=== PATIENT | female | born 1975 | race African-American/Black ===

== ENCOUNTER 2017-04-17 00:50 | Emergency (ER) | payer OTHER ==
[2017-04-17] MEDS ORDERED: IBUPROFEN 600 MG TABLET (FP) PO ONE ×2 (00:54→00:59)
--- NOTE | 2017-04-17 00:54 | PDOC ---
History of Present Illness - General History Source: Patient Exam Limitations: No Limitations - History of Present Illness Initial Comments: 04/17/17 01:18 The patient is a 41 year old female, with significant past medical history of HLD, who presents today complaining of palpitations starting this evening after taking Coricidin for a cough and runny nose. She states she took the medication before she was going to sleep, and the palpitations woke her up from her sleep. She states notes that she did not take any of her blood pressure medications ( metoprolol, amlodipine, lisinopril) this morning because she did not know how it would react with the cough medications. Denies chest pain, SOB. Denies abdominal pain. Denies back pain. Denies chills, nausea, vomiting. Allergies: none reported PCP- Dr. Ko Ojeda <Katya Reyez - Last Filed: 04/17/17 01:17> <Cathy Rose - Last Filed: 04/17/17 05:44> - General Stated Complaint: HEART PALPITATIONS Time Seen by Provider: 04/17/17 00:53 Past History <Katya Reyez - Last Filed: 04/17/17 01:17> - Psycho/Social/Smoking Cessation Hx Suicidal Ideation: No Smoking History: Never smoked Have you smoked in the past 12 months: No Information on smoking cessation initiated: No Hx Alcohol Use: No Drug/Substance Use Hx: No <Cathy Rose - Last Filed: 04/17/17 05:44> - Past Medical History Allergies/Adverse Reactions: Allergies Allergy/AdvReac Type Severity Reaction Status Date / Time No Known Allergies Allergy Verified 04/17/17 00:53 Home Medications: Ambulatory Orders Amlodipine Besylate [Norvasc -] 10 mg PO DAILY 04/17/17 Lisinopril [Prinivil] 10 mg PO DAILY 04/17/17 Metoprolol Tartrate [Lopressor -] 25 mg PO DAILY 04/17/17 Review of Systems - Review of Systems Able to Perform ROS?: Yes Comments:: 04/17/17 01:18 GENERAL/CONSTITUTIONAL: No fever or chills. No weakness. HEAD, EYES, EARS, NOSE AND THROAT: +runny nose. No change in vision. No ear pain or discharge. No sore throat. CARDIOVASCULAR: +palpitations. No chest pain or shortness of breath. RESPIRATORY: +cough. No wheezing, or hemoptysis. GASTROINTESTINAL: No nausea, vomiting, diarrhea or constipation. GENITOURINARY: No dysuria, frequency, or change in urination. MUSCULOSKELETAL: No joint or muscle swelling or pain. No neck or back pain. SKIN: No rash NEUROLOGIC: No headache, vertigo, loss of consciousness, or change in strength/ sensation. ENDOCRINE: No increased thirst. No abnormal weight change. HEMATOLOGIC/LYMPHATIC: No anemia, easy bleeding, or history of blood clots. ALLERGIC/IMMUNOLOGIC: No hives or skin allergy. <Katya Reyez - Last Filed: 04/17/17 01:17> *Physical Exam - Vital Signs Last Vital Signs Temp Pulse Resp BP Pulse Ox 99.4 F 110 H 20 150/108 100 04/17/17 00:52 04/17/17 00:52 04/17/17 00:52 04/17/17 00:52 04/17/17 00:52 - Physical Exam Comments: 04/17/17 01:18 GENERAL: Awake, alert, and fully oriented, in no acute distress. +febrile. HEAD: No signs of trauma EYES: PERRLA, EOMI, sclera anicteric, conjunctiva clear ENT: Auricles normal inspection, hearing grossly normal, nares patent, oropharynx clear without exudates. Moist mucosa NECK: Normal ROM, supple, no lymphadenopathy, JVD, or masses LUNGS: Breath sounds equal, clear to auscultation bilaterally. No wheezes, and no crackles HEART: +tachycardic. Regular rhythm, normal S1 and S2, no murmurs, rubs or gallops ABDOMEN: Soft, nontender, normoactive bowel sounds. No guarding, no rebound. No masses EXTREMITIES: Normal range of motion, no edema. No clubbing or cyanosis. No cords, erythema, or tenderness NEUROLOGICAL: Cranial nerves II through XII grossly intact. Normal speech, normal gait SKIN: Warm, Dry, normal turgor, no rashes or lesions noted. <Katya Reyez - Last Filed: 04/17/17 01:17> - Vital Signs Last Vital Signs Temp Pulse Resp BP Pulse Ox 99.4 F 110 H 20 150/108 100 04/17/17 00:52 04/17/17 00:52 04/17/17 00:52 04/17/17 00:52 04/17/17 00:52 <Cathy Rose - Last Filed: 04/17/17 05:44> ED Treatment Course - Medications Given in the ED: ED Medications Discontinued Medications Generic Name Dose Route Start Last Admin Trade Name Tejinder PRN Reason Stop Dose Admin Ibuprofen 600 mg 04/17/17 00:54 04/17/17 01:01 Motrin - PO 04/17/17 00:55 600 mg ONCE ONE Administration <Katya Reyez - Last Filed: 04/17/17 01:17> Medical Decision Making - Medical Decision Making 04/17/17 04:05 Patient Name: Catie Thornton THIS IS A PRELIMINARYREPORT FROM [facility] EXAM: X-ray chest IMAGES: 3 INDICATION: Chest pain DATE OF SERVICE : 2017-04-17 01:26:39.0 COMPARISON: none FINDINGS: The heart size is normal. Aorta is mildly tortuous. The lungs are clear. The bones and soft tissues are normal IMPRESSION: No acute pathology. THIS DOCUMENT HAS BEEN ELECTRONICALLY SIGNED 04/17/17 05:35 Pt states that she didnt take her beta anusha or calcium channel blockers today. Today pt she took an antihistamine and decongestant and as a result she has palpitations. 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 Pt wants to know if she has an She was given her usual dose of metoprolol and amlodipine and she was reevaluated. Pt feeling better. Her CXR is normal, no sign of pneumonia. Pt is stable for discharge home <Cathy Rose - Last Filed: 04/17/17 05:44> *DC/Admit/Observation/Transfer - Attestations Scribe Attestion: 04/17/17 01:19 Documentation prepared by LIZET Beltrán, acting as medical management specialist for Cathy Rose MD <Katya Reyez - Last Filed: 04/17/17 01:17> - Discharge Dispostion Admit: No <Cathy Rose - Last Filed: 04/17/17 05:44> Diagnosis at time of Disposition: Palpitations, Viral illness - Discharge Dispostion Disposition: HOME Condition at time of disposition: Stable - Referrals Referrals: Ko Ojeda MD [Primary Care Provider] - - Patient Instructions Printed Discharge Instructions: DI for Viral Syndrome - Post Discharge Activity Work/School Note: Back to Work
[2017-04-17] MEDS ORDERED: amLODIPine BESYLATE 5 MG TABLET (FP) PO ONE (01:11)
[2017-04-17] MEDS ORDERED: METOPROLOL TARTRATE 50 MG TABLET (FP) PO ONE (01:11)
[2017-04-17 02:12] VITALS: BMI 182.8
[2017-04-17 02:14] LABS: URINE APPEARANCE CLEAR; URINE BILIRUBIN NEGATIVE (NEGATIVE); URINE BLOOD NEGATIVE (NEGATIVE); URINE COLOR STRAW; URINE GLUCOSE (UA) NEGATIVE (NEGATIVE); URINE KETONE NEGATIVE (NEGATIVE); URINE LEUK ESTERASE NEGATIVE (NEGATIVE); URINE NITRITE NEGATIVE (NEGATIVE); URINE PROTEIN NEGATIVE (NEGATIVE); URINE UROBILINOGEN NEGATIVE mg/dL (0.2-1.0)
[2017-04-17 04:11] VITALS: BP 135/89; PULSE 69; TEMP 98.1
--- NOTE | 2017-04-17 09:13 | EKG ---
Test Reason : Blood Pressure : / mmHG Vent. Rate : 106 BPM Atrial Rate : 106 BPM P-R Int : 136 ms QRS Dur : 064 ms QT Int : 330 ms P-R-T Axes : 000 -25 -32 degrees QTc Int : 438 ms SINUS TACHYCARDIA NONSPECIFIC T WAVE ABNORMALITY ABNORMAL ECG NO PREVIOUS ECGS AVAILABLE Confirmed by ESHA BOONE MD ([id number]) on 04/17/2017 9:13:06 AM Referred By: Confirmed By:ESHA BOONE MD
== END 2017-04-17 04:16 | disposition home or self-care (01) ==
LOC: JER 00:50
DX: B34.9 Viral infection, unspecified (principal); R00.2 Palpitations; E78.00 Pure hypercholesterolemia, unspecified
CPT/HCPCS: 71020-TC; 81003; 84703; 93005; 93010; 99284-25